=== PATIENT | male | born 1960 | race African-American/Black ===

== ENCOUNTER 2019-01-26 19:00 | Inpatient (IN) | payer OTHER ==
[~2019-01-26] VITALS: Ht 188 cm; Wt 77.7 kg
--- NOTE | ~2019-01-26 | HC ---
[facility] [place] [address] CONSULTATION Name: KATHY STONER Room #: 364-P ADM IN M.R.#: [id number] Admission: 01/26/19 ������������������ Attend Phys: Indra Nicholas MD Discharge: ������������������ Date of : 64 Report #: [id number] THIS REPORT FOR: //name// CC: James Nicholas [facility] physician/PCP Kuldeep Cuellar DATE OF SERVICE: 02/05/2019 CHIEF COMPLAINT: The patient admitted for diabetic foot ulcer to the right plantar second MTP joint. The patient is DICTATION ENDS HERE. ��������������������������������������������� ���������������������������������������� By: ��������������������������������������������� 1715 [id number] Lenny Aguilar DPM /hua
[~2019-01-26 19:00] MED LIST: ADVAIR 500-501 EACH; ADVAIR 500-501 EACH INH; ALBUTEROL; ASPIRIN325 PO; AVELOX 400 MG400 MG PO; CARDIZEM CD360 MG PO; COLACE 100 MG100 MG PO; CRESTOR10 MG PO; DILTIAZEM ER; DILTIAZEM HCL90 MG PO; FLONASE 0.05%50 MCG NASAL; FUROSEMIDE 40 M40 M1 PO; HYDROCODON-ACE1 EAC7 PO; IPRATROPIUM; LANOXIN 0.120.125 M1 PO; LANTUS SUBQ; LASIX 40 MG TAB40 M1 PO; LISINOPRIL40 MG PO; LOPRESSOR 50 MG50 M1 PO; METOPROLOL PO; MIRALAX255 GM PO; NOVOLIN N100 UNIT/1 SUBQ; NOVOLOG100 UNIT/1; NOVOLOG100 UNIT/1 SUBQ; POTASSIUM CHLO20 ME1 PO; PREDNISONE 10 M10 MG; PREDNISONE 10 M10 MG PO; PREDNISONE 20 M20 M1 PO; RANITIDINE 150150 M1 PO; SENNA PO; SENNA-S TABLET1 EACH PO; SPIRIVA INH; VENTOLIN HFA INH8 GM INH; XARELTO10 M1 PO; ZANTAC 150MG T150 M1 PO; [UNRECOGNIZED DRUG - CODE]
[2019-01-26 20:00] LABS: MCHC 30.4 g/dL (28.0-37.0); MCV 88.8 fL (80.0-100.0)
[2019-01-26 20:02] LABS: HEMATOCRIT 39.4 % (42.0-52.0); PLATELET COUNT 162 thou/uL (150-400); RBC 4.44 mil/uL (4.50-6.00); RDW 23.5 % (10.5-14.5); WBC 6.6 thou/uL (4.0-11.0)
[2019-01-26 20:05] LABS: BE(vivo) -13.4 mmol/L (-2 to +3); HCO3 15.9 mmol/L (22.0-26.0); PCO2 50.8 mmHg (35.0-45.0); PO2 64.2 mmHg (80.0-100.0); sO2 84.4 % (92.0-98.0)
[2019-01-26 20:06] LABS: pH 7.113 (7.360-7.450)
[2019-01-26 20:13] LABS: CALCIUM 9.1 mg/dL (8.5-10.1); CREATININE 7.1 mg/dL (0.7-1.3)
[2019-01-26 20:18] LABS: ALBUMIN 3.2 g/dL (3.4-5.0); DIRECT BILIRUBIN 0.8 mg/dL (<0.1-0.3); TOTAL BILIRUBIN 1.2 mg/dL (<0.1-1.0); TOTAL PROTEIN 7.8 g/dL (6.4-8.2); TROPONIN-I 0.32 ng/mL (<0.06)
[2019-01-26 20:21] LABS: ABSOLUTE NEUTROPHILS 5.5 thou/uL (1.4-8.2); ANISOCYTOSIS 2+; NUCLEATED RBCS 2 /100WBC
[2019-01-26 20:22] LABS: LARGE PLATELETS OCCASIONAL; POIKILOCYTOSIS 1+
[2019-01-26 21:12] LABS: BE(vivo) -14.5 mmol/L (-2 to +3); HCO3 15.1 mmol/L (22.0-26.0); PCO2 50.3 mmHg (35.0-45.0); PO2 93.4 mmHg (80.0-100.0)
[2019-01-26 21:13] LABS: pH 7.094 (7.360-7.450)
[2019-01-26 21:16] LABS: APTT 28.6 Seconds (24.5-32.8); INR 1.2; PROTIME 12.9 Seconds (9.3-11.4)
--- NOTE | 2019-01-26 23:51 | NUR ---
MARLENE STONER (SISTER/DPOA) CALLED [phone]. SHE STATED THAT PT USUALLY [place] [facility] [place]
[2019-01-26 23:57] LABS: SALICYLATE < 2.8 mg/dL (2.8-20.0); TROPONIN-I 0.42 ng/mL (<0.06)
[2019-01-27] VITALS (59 sets, daily range): BP systolic 43–124; BP diastolic 17–85
[2019-01-27 00:15] LABS: BE(vivo) -12.1 mmol/L (-2 to +3); HCO3 15.9 mmol/L (22.0-26.0); PCO2 44.3 mmHg (35.0-45.0); PO2 96.8 mmHg (80.0-100.0); sO2 95.6 % (92.0-98.0)
[2019-01-27 00:18] LABS: pH 7.173 (7.360-7.450)
[2019-01-27 01:57] LABS: BE(vivo) -9.3 mmol/L (-2 to +3); HCO3 17.1 mmol/L (22.0-26.0); PCO2 39.2 mmHg (35.0-45.0); PO2 183.2 mmHg (80.0-100.0); sO2 99.1 % (92.0-98.0)
[2019-01-27 01:58] LABS: pH 7.258 (7.360-7.450)
[2019-01-27 02:44] LABS: URINE BILIRUBIN 1+ (Negative); URINE BLOOD 3+ (Negative); URINE CLARITY CLEAR; URINE COLOR YELLOW; URINE GLUCOSE-RANDOM* NEGATIVE (Negative); URINE KETONES TRACE (Negative); URINE NITRITE-REFLEX NEGATIVE (Negative); URINE PROTEIN (DIPSTICK) 2+ (Negative); URINE UROBILINOGEN 0.2 E.U./dl (0.2-1.0)
[2019-01-27 02:50] LABS: URINE LEUKOCYTES-REFLEX 2+ (Negative)
[2019-01-27 02:53] LABS: AMP/METHAMP Negative (Negative); BARBITURATES Negative (Negative); BENZODIAZEPINES POSITIVE (Negative); COCAINE POSITIVE (Negative); METHADONE Negative (Negative); OPIATES Negative (Negative); PCP POSITIVE (Negative)
[2019-01-27 03:01] LABS: CASTS None Seen /LPF (None Seen); CRYSTALS None Seen /LPF (None Seen); MUCUS 0-3 Light strn/LPF (None Seen); SQUAMOUS 0-3 Few /LPF (0-3); URINE RBC >20 Many /HPF (0-2)
[2019-01-27 05:52] LABS: WBC 7.3 thou/uL (4.0-11.0)
[2019-01-27 05:54] LABS: HEMATOCRIT 37.4 % (42.0-52.0); HEMOGLOBIN 11.7 gm/dL (14.0-18.0); MCH 26.9 pg (26.0-34.0); MCHC 31.3 g/dL (28.0-37.0); MCV 85.9 fL (80.0-100.0); RBC 4.35 mil/uL (4.50-6.00); RDW 22.7 % (10.5-14.5)
[2019-01-27 06:10] LABS: CALCIUM 9.2 mg/dL (8.5-10.1); CREATININE 7.6 mg/dL (0.7-1.3); POTASSIUM 5.3 mmol/L (3.5-5.1); TROPONIN-I 0.59 ng/mL (<0.06)
--- NOTE | 2019-01-27 06:25 | NUR ---
Pt received into room 242 earlier this am, made comfortable in bed and monitor applied. See rhythm strips. Remains on levophed gtt for BP maintenance and sedated on low dose propofol gtt for vent management. Urine output remains marginal for shift and no BM observed. Am lab results noted, continue with POC.
[2019-01-27 08:07] LABS: URINE CREATININE-RANDOM* 118.2 mg/dL
--- NOTE | 2019-01-27 08:37 | EKG ---
[address] [address] ELECTROCARDIOGRAM REPORT Name: KATHY STONER Room #: 242-P ADM IN M.R.#: [id number] ������������������ Admission: 01/26/19 ������������������ Attend Phys: Indra Nicholas MD Discharge: ������������������ Date of : 64 Report #: [id number] ����������������������������������������������������������������� [id number] THIS REPORT FOR: //name// [facility] ED Test Date: 2019-01-26 Test Time: 19:57:34 Pat Name: KATHY STONER Department: Room: 242 Gender: M Retail Loan Officer: HERMINIA : 1960 Requested By: Michael Ruiz Order Number: [id number] MD: Alexander Agustin Measurements Intervals [place] Rate: 103 P: [place]: QRS: 139 QRSD: 102 T: QT: 477 QTc: 625 Interpretive Statements Atrial fibrillation Right axis deviation Low voltage, extremity and precordial leads Compared to ECG 12/04/2012 08:40:34 Electronically Signed On 01-27-2019 8:36:56 CLERICAL AIDE TEACHER by Alexander Agustin [email or web address] ��������������������������������������������� <ELECTRONICALLY SIGNED> ���������������������������������������� By: Alexander Agustin MD ��������������������������������������������� 01/27/19 0836 56 56 Alexander Agustin MD /GOPI
--- NOTE | 2019-01-27 10:08 | 2DMMODE ---
[facility] [address] [place] [address] 2 D/M-MODE ECHOCARDIOGRAM Name: GEORGIANAKATHYALEISHA MARTIN Room #: 242-P [facility] IN M.R.#: [id number] ������������� Admission: 01/26/19 ������������� Attend Phys: Indra Nicholas MD Discharge: ��� ������������� ��� Date of : 64 Date of Service: 01/27/19 1008 �� Report #: [id number] �������� ��������������������������������������������[id number] THIS REPORT FOR: //name// APPROVED REPORT Study performed: 01/27/2019 08:39:52 EXAM: Comprehensive 2D, Doppler, and color-flow Echocardiogram Patient Location: ICU Room #: 242 Status: routine BSA: 2.32 HR: 89 bpm BP: 96/63 mmHg Rhythm: Atrial Fibrillation Other Information Study Quality: Good Indications COPD Pulmonary Hypertension Diabetes Atrial Fibrillation Dyspnea Elevated Troponin Cardiomyopathy Hypertension/HDD 2D Dimensions RVDd: 63.88 mm IVSd: 12.31 (7-11mm) LVOT Diam: 23.07 (18-24mm) LVDd: 48.23 mm PWd: 13.34 (7-11mm) Ascending Ao: 29.24 (22-36mm) LVDs: 40.04 (25-40mm) Aortic Root: 32.16 mm IVC: 43.00 mm Volumes Left Atrial Volume (Systole) Single Plane 4CH: 72.80 mL Single Plane 2CH: 76.13 mL LA ESV Index: 35.00 mL/m2 Aortic Valve AoV Peak Segun.: 1.04 m/s AO Peak Gr.: 5.51 mmHg LVOT Max P.51 mmHg [facility] [address] [place] [address] 2 D/M-MODE ECHOCARDIOGRAM Name: GEORGIANAKATHY MARIO Room #: 242-P [facility] IN ..#: [id number] ������������� Admission: 01/26/19 ������������� Attend Phys: Indra Nicholas MD Discharge: ��� ������������� ��� Date of : 64 Date of Service: 01/27/19 1008 �� Report #: [id number] �������� ��������������������������������������������[id number] LVOT Max V: 0.93 m/s SHARAD Vmax: 3.74 cm2 Pulmonary Valve PV Peak Segun.: 1.26 m/s PV Peak Gr.: 6.31 mmHg Tricuspid Valve TR Peak Segun.: 3.49 m/s TR Peak Gr.: 48.98 mmHg PA Pressure: 64.00 mmHg Left Ventricle The left ventricle is normal size. Flattened septum consistent with right ventricular pressure overload. Mild concentric left ventricular hypertrophy. Left ventricular systolic function is mildly decreased. LVEF is 45-50%. This study is not technically sufficient to allow evaluation of the LV diastolic function due to atrial fibrillation. Right Ventricle Right ventricle is markedly dilated. Right ventricle is hypokinetic. Atria Left atrium is dilated. Right atrium is dilated. Aortic Valve The aortic valve is normal in structure. No aortic regurgitation is present. There is no aortic valvular stenosis. Mitral Valve The mitral valve is normal in structure. Mild mitral regurgitation. No evidence of mitral valve stenosis. Tricuspid Valve The tricuspid valve is normal in structure. There is severe tricuspid regurgitation. Estimated PAP 64 mmHg. There is moderate-severe pulmonary hypertension. Pulmonic Valve The pulmonary valve is normal in structure. Trace to mild pulmonic regurgitation. Great Vessels The aortic root is normal in size. The inferior vena cava is dilated with no inspiratory collapse. [facility] [place] [address] 2 D/M-MODE ECHOCARDIOGRAM Name: GEORGIANAKATHY MARIO Room #: 242-P ADM IN M.R.#: [id number] ������������� Admission: 01/26/19 ������������� Attend Phys: Indra Nicholas MD Discharge: ��� ������������� ��� Date of : 64 Date of Service: 01/27/19 1008 �� Report #: [id number] �������� ��������������������������������������������[id number] Pericardium Small pericardial effusion. <Conclusion> The left ventricle is normal size. LVEF is 45-50%. Flattened septum consistent with right ventricular pressure overload. Right ventricle is markedly dilated. Right ventricle is hypokinetic. Left atrium is dilated. Right atrium is dilated. The aortic valve is normal in structure. The mitral valve is normal in structure. Mild mitral regurgitation. The tricuspid valve is normal in structure. There is severe tricuspid regurgitation. Estimated PAP 64 mmHg. There is moderate-severe pulmonary hypertension. The pulmonary valve is normal in structure. Trace to mild pulmonic regurgitation. Small pericardial effusion. ��������������������������������������������� <ELECTRONICALLY SIGNED> ���������������������������������������� By: Kuldeep Cuellar MD ��������������������������������������������� 01/27/19 1008 1008 07 Kuldeep Cuellar MD /INF
[2019-01-27 11:04] LABS: HEMATOCRIT 36.5 % (42.0-52.0); HEMOGLOBIN 11.5 gm/dL (14.0-18.0); MCH 26.5 pg (26.0-34.0); MCHC 31.4 g/dL (28.0-37.0); MCV 84.5 fL (80.0-100.0); RBC 4.33 mil/uL (4.50-6.00); RDW 22.3 % (10.5-14.5); WBC 7.4 thou/uL (4.0-11.0)
[2019-01-27 11:15] LABS: INR 1.2; PROTIME 12.8 Seconds (9.3-11.4)
--- NOTE | 2019-01-27 13:03 | NUR ---
Case opened to follow for support and dc planning. The pt is currently in the ICU on a vent. Case discussed with the care team and chart reviewed. Pt's sister Shira is said to be his dpoa. Mat Machine Operator spoke with Shira who conferenced in their mom Maria Luz. The pt and his mom Maria Luz lives with his brother Jigar. Maria Luz reports that the [place] was [place] [facility] [place] the last month and that the past 3 weeks he has been too weak to get out of his car and into the house which has approx 30 steps. He has been sleeping in the car. He is not able to do the steps without assistance and his brother works clasp machine operator. The pt's mother is elderly and can not help him either. She reports that he struggles to care for himself and does not use his home o2 regularly as it is in the house. She reports that he keeps his meds in the car and she is not sure if he has been taking them. Shira reports that he has a DPOA for health care on file at [facility]. The family does not have a copy. Nursing is requesting his records. The pt's sister notes that she lives out of town and that Jigar and Maria Luz should be contacted first if he has a change in status. His mom does not drive and is waiting for Jigar to get home from work before coming in to see him today. Contact numbers updated. Will follow along for support as needed.
[2019-01-27 17:33] LABS: BE(vivo) -7.6 mmol/L (-2 to +3); HCO3 17.3 mmol/L (22.0-26.0); PCO2 33.5 mmHg (35.0-45.0); PO2 148.4 mmHg (80.0-100.0); pH 7.331 (7.360-7.450); sO2 98.8 % (92.0-98.0)
[2019-01-27 18:38] LABS: CALCIUM 8.9 mg/dL (8.5-10.1); CREATININE 7.5 mg/dL (0.7-1.3); POTASSIUM 5.4 mmol/L (3.5-5.1)
--- NOTE | 2019-01-27 20:21 | NUR ---
END OF SHIFT NOTE. PT REMAINS STABLE ON VENT TODAY LEVOPHED AT 14MCG. AFIB WITH PVCS.
[2019-01-28] VITALS (47 sets, daily range): BP systolic 85–115; BP diastolic 46–74
[2019-01-28 04:46] LABS: BE(vivo) -8.9 mmol/L (-2 to +3); HCO3 16.3 mmol/L (22.0-26.0); PO2 181.9 mmHg (80.0-100.0); sO2 99.1 % (92.0-98.0)
[2019-01-28 04:47] LABS: pH 7.311 (7.360-7.450)
--- NOTE | 2019-01-28 05:21 | NUR ---
PT RESTING COMFORTABLE ON VENT NOW AT 40% FIO2 SATS 100% PT REMAINS ON PROPOFOL GTT FOR VENT COMFORT. PT ALSO ON HEPARIN, LEVO AND LASIX GTT. PT AFEBRILE AND VSS. REMAINS AFIB ON MONITOR. PT CONITUES WITH OGT LIS WITH BROWN DRAINAGE. AM LABS TO BE DRAWN AND REVIEWED.
[2019-01-28 05:46] LABS: HEMATOCRIT 39.1 % (42.0-52.0); HEMOGLOBIN 12.2 gm/dL (14.0-18.0); MCH 26.2 pg (26.0-34.0); MCHC 31.1 g/dL (28.0-37.0); MCV 84.4 fL (80.0-100.0); RBC 4.63 mil/uL (4.50-6.00); RDW 22.6 % (10.5-14.5); WBC 7.8 thou/uL (4.0-11.0)
[2019-01-28 06:06] LABS: ALBUMIN 2.7 g/dL (3.4-5.0); CALCIUM 8.8 mg/dL (8.5-10.1); CREATININE 6.9 mg/dL (0.7-1.3)
[2019-01-28 06:13] LABS: POTASSIUM 5.3 mmol/L (3.5-5.1)
--- NOTE | 2019-01-28 07:49 | HC ---
[facility] [address] [address] [place] [address] CONSULTATION Name: KATHY STONER Room #: 242-P ADM IN M.R.#: [id number] Admission: 01/26/19 ������������������ Attend Phys: Indra Nicholas MD Discharge: ������������������ Date of : 64 Report #: [id number] THIS REPORT FOR: //name// CC: James Nicholas [facility] physician/PCP Kuldeep Cuellar REASON FOR CONSULTATION: Acute kidney injury. REASON FOR PRESENTATION: Brought by his family members due to loss of consciousness. HISTORY OF PRESENT ILLNESS: This is not obtained from the patient as he is currently not able to provide me with any details of the history, he is intubated. He is a 58-year-old with past medical history of heart failure, ejection fractions of 30% per his sister. He has substance abuse. He is known to have seizure disorder, Hodgkin's lymphoma. It is not clear to me whether he was treated for that or not. He was found by his brother in a car outside his brother's home. Was brought to the Emergency Room declined and deteriorated his conditions, was intubated and I am consulted to manage his acute kidney injury as he was found to be hyperkalemic with a potassium of 6.0 and a creatinine of 7.6. No known baseline. However, back in 2012, he had normal kidney function. He is known to have history of Hodgkin's lymphoma and was supposed to have a Port-A-Cath placed back in 2012 while here in the hospital; however, he lost to follow up per the notes. He has very advanced COPD. He follows at [facility] and had required numerous paracenteses for ascites. PAST MEDICAL HISTORY: 1. Hodgkin's lymphoma. 2. Heart failure. 3. Noncompliance. 4. COPD. 5. Diabetes mellitus. 6. Restrictive lung disease. 7. Hypertension. 8. Substance abuse. 9. Multiple paracenteses for ascites. 10. Post-lymph node biopsy. REPORTED MEDICATIONS: 1. Diltiazem. 2. Lisinopril. 3. Metoprolol. 4. Digoxin. 5. Xarelto. 6. Insulin. [facility] [address] [place] [address] CONSULTATION Name: KATHY STONER MARIO Room #: 242-P [facility] IN M.R.#: [id number] Admission: 01/26/19 ������������������ Attend Phys: Indra Nicholas MD Discharge: ������������������ Date of : 64 Report #: [id number] 7. Furosemide. REVIEW OF SYSTEMS: Unobtainable. The patient is currently intubated. FAMILY HISTORY: Unobtainable given the patient's mental status. SOCIAL HISTORY: Unobtainable given the patient's mental status. PHYSICAL EXAMINATION: GENERAL: Intubated. VITAL SIGNS: Pulse is 96, blood pressure is 111/73, respiratory rate is 22. HEAD AND NECK: There is an ET tube. CHEST: Decreased air entry bilaterally. CARDIOVASCULAR: No rub detected. ABDOMEN: Soft, distended. LOWER EXTREMITIES: +3 edema. LABORATORY VALUES: Reviewed. Hemoglobin is 11.7. Chemistry from today revealed a sodium of 140, potassium 5.3, BUN of 111, creatinine of 7.6. Ammonia was marginally elevated from yesterday at 53. Troponin was marginally elevated. Lactic acid was 2.5. Chest x-ray with diffuse infiltrate. ASSESSMENT, IMPRESSION, PLAN: 1. Acute kidney injury with unknown baseline. 2. Noncompliance. 3. Substance abuse. 4. Hematuria. 5. Respiratory failure. 6. Hyperkalemia. 7. Hodgkin's lymphoma. 8. Ascites with repeated paracentesis. 9. We will initiate the appropriate workup for the patient, however. It does look like that the patient has extensive comorbid conditions with extreme noncompliance, which will complicate his management. 10. Rule out rhabdomyolysis. 11. Obtain an ultrasound of both kidneys. 12. Initiated on Lasix drip yesterday. 13. Potassium was treated and it is down. 14. Obtain a cardiac echo. 15. Vent management per Pulmonary. 16. Septic workup. 17. Obtain [facility] medical record. [address] [address] CONSULTATION Name: STONERKATHY Room #: 242-P [facility] IN M.R.#: [id number] Admission: 01/26/19 ������������������ Attend Phys: Indra Nicholas MD Discharge: ������������������ Date of : 64 Report #: [id number] 18. We will have to discuss with the family future plans for his care including potential need for dialysis. ��������������������������������������������� <ELECTRONICALLY SIGNED> ���������������������������������������� By: James Yanes MD ��������������������������������������������� 01/28/19 0749 0740 1922 James Yanes MD /nt
--- NOTE | 2019-01-28 18:36 | NUR ---
PATIENT ON LIGHT SEDATION, ALERT AND FOLLOWS COMMANDS WITH SEDATION VACATION. A-FIB ON DIPLOMA MAKER. PATIENT CURRENT RATE 120S-130'S DR. LORENZ AWARE, NO NEW ORDERS NOTED. ON VENTILATOR 30% FIO2. OG TUBE TO LIS. GODINEZ PATENT WITH ADEQUATE OUTPUT. PATIENT TURNED Q2H. FAMILY UPDATED ON THE PLAN OF CARE. NO SIGNS OF ACUTE DISTRESS NOTED AT THIS TIME. WILL CONTINUE TO MONITOR.
--- NOTE | 2019-01-28 19:47 | HC ---
[facility] [place] [address] [place] [address] CONSULTATION Name: KATHY STONER Room #: 242-P [facility] IN M.R.#: [id number] Admission: 01/26/19 ������������������ Attend Phys: Indra Nicholas MD Discharge: ������������������ Date of : 64 Report #: [id number] THIS REPORT FOR: //name// CC: James Nicholas [facility] physician/PCP Kuldeep Cuellar TYPE OF REPORT: Pulmonary consultation. REFERRING PHYSICIAN: Indra Nicholas M.D. REASON FOR REFERRAL: Acute respiratory failure. HISTORY OF PRESENT ILLNESS: The patient is a 58-year-old -Iranian male who was brought to the Emergency Room with altered mental status. He was subsequently intubated. A Pulmonary consultation was requested. Most of the history is obtained from the records. Going through the records, the patient has multiple medical problems including COPD, sleep apnea, noncompliant with the use of CPAP, Hodgkin's lymphoma, atrial fibrillation and hypertension. He also has a history of substance abuse. According to records, the patient was found sleeping outside in a car from his brother's home. He was subsequently brought to the Emergency Room. His mentation deteriorated over time, necessitating intubation. Initial EKG showed atrial fibrillation with a rate of 103 without right axis deviation. He was found to be profoundly acidotic with mixed respiratory and metabolic acidosis. His creatinine was 7.1. Cardiology has been consulted along with Nephrology Service. Overnight, the patient was fairly stable, requiring vasopressors. Hemodynamically remained relatively stable. Updates were given when I was called about the patient's arrival to the ICU around 2:00 in the morning. The patient was given bicarbonate with some correction in his severe acidosis. PAST MEDICAL HISTORY: As mentioned above. History of atrial fibrillation, hypertension, COPD, sleep apnea, apparently noncompliant with the use of CPAP, history of heart failure, Hodgkin's lymphoma diagnosed in 2011, status post right neck lymph node biopsy, diabetes mellitus type 1, seizure disorder, polysubstance abuse including PCP, cocaine, history of liver disease with ascites, history of West Nile virus infection and past history of INNOVATION MANAGER bleed. ALLERGIES: To PENICILLIN, reactions not specified. MEDICATIONS: List from home reviewed and this include Ventolin, Cardizem, Novolin, Zestril, Spiriva, Lopressor, Zantac, Lovenox, Xarelto, Flonase nasal [facility] [address] [place] [address] CONSULTATION Name: KATHY STONER MARIO Room #: 242-P [facility] IN .R.#: [id number] Admission: 01/26/19 ������������������ Attend Phys: Indra Nicholas MD Discharge: ������������������ Date of : 64 Report #: [id number], Lantus and Lasix. FAMILY HISTORY: Noncontributory. SOCIAL HISTORY: History of polysubstance abuse, current tobacco abuse and no history of alcohol use. REVIEW OF SYSTEMS: Deferred as the patient is intubated. PHYSICAL EXAMINATION: GENERAL: He is sedated. VITAL SIGNS: Temperature is 98 degrees Fahrenheit, pulse is 90, respiratory rate is 22, blood pressure 100/78 mmHg and saturation 100%. HEENT: Normocephalic and atraumatic. He is orally intubated. NECK: Supple, without any lymphadenopathy or thyromegaly. CHEST: Breath sounds are fair with few scattered crackles in the bases. No wheezes. CARDIOVASCULAR: Normal S1 and S2. There are no murmurs or gallop. There is no JVD and no carotid bruit. Pulses are 1/4+ bilaterally. ABDOMEN: Soft. No masses felt. GENITOURINARY: Deferred. RECTAL: Deferred. EXTREMITIES: There is no edema, cyanosis or clubbing. NEUROLOGICAL: Deferred as the patient is sedated. RADIOLOGICAL DATA: Portable chest x-ray shows ET tube approximately 2 cm above the vazquez. Cardiomegaly is present. Mild interstitial infiltrates are noted along with bilateral mild pleural thickening. There are no old x-rays for comparison. Venous Doppler ultrasound shows no evidence of DVT. Echocardiogram shows a decrease in ejection fraction of 45%, normal LV size, markedly dilated right ventricle, hypokinetic right ventricle, dilated left and right atrium, mild mitral regurgitation and pulmonary artery pressure measuring [address] head shows focal hypodensity involving the medial aspect of the left frontal lobe, likely encephalomalacia related to remote infarct. Sodium 142, potassium 6.0 and repeat is 5.3, chloride 109, CO2 16, BUN is 106 and creatinine is 7.1. Liver enzymes are mildly abnormal. WBC 6600, hemoglobin 12.0 and platelets normal and no evidence of significant bandemia. Albumin 3.2. Troponin 0.59. Initial arterial blood gas revealed pH 7.11, pCO2 of 50 and pO2 of 64 on 3-1/2 liters of O2. IMPRESSION: 1. Acute hypercapnic hypoxic respiratory failure in this 68-year-old -Iranian male. He has multiple medical problems including polysubstance abuse, chronic obstructive pulmonary disease and sleep apnea. He has severe mixed respiratory and metabolic acidosis. [address] [address] CONSULTATION Name: KATHY STONER Room #: 242-P [facility] IN M.R.#: [id number] Admission: 01/26/19 ������������������ Attend Phys: Indra Nicholas MD Discharge: ������������������ Date of : 64 Report #: [id number] Etiology for his respiratory failure is due to encephalopathy, possible sepsis with worsening renal failure. Substance abuse may be contributing. 2. Altered mental status, encephalopathy as mentioned above, likely multifactorial including toxic and metabolic and possible infectious source along with his hepatic liver disease. Urine drug screen will be helpful. 3. Hypotension. Not entirely clear but presumed sepsis, possible volume depletion. 4. Acute kidney injury with a creatinine of 7.0, hyperkalemia, profound metabolic acidosis complicated by mixed respiratory acidosis. Renal has been consulted. Etiology of this is unclear. 5. History of chronic obstructive pulmonary disease, severity unknown, contributing to respiratory failure. 6. History of sleep apnea, apparently noncompliant with his continuous positive airway pressure and also contributing to his respiratory compromise. 7. History of liver disease with a past history of ascites. The patient apparently has had paracentesis in the past. 8. History of Hodgkin's lymphoma in 2011. 9. Hypertension. 10. Diabetes mellitus, insulin-dependent. 11. History of seizure disorder. 12. Apparent history of cerebrovascular accident, CT head noted. 13. Polysubstance abuse including phencyclidine and cocaine. 14. Echocardiogram shows reduced ejection fraction 45%, markedly dilated right ventricle with hypokinetic right ventricle, pulmonary artery pressure measures 64 mmHg. There is a question of possible pulmonary embolus. Based on the presentation, this is felt to be less likely. His right ventricular abnormality may be related to underlying chronic obstructive pulmonary disease, untreated sleep apnea along with substance abuse. Ultrasound shows no evidence of deep venous thrombosis. Heparin has been initiated by Cardiology. We cannot do a CT chest angiogram given renal failure. Ultimately V/Q scan may be helpful if possible if it can be done. RECOMMENDATIONS: We will continue mechanical ventilation, wean O2 for saturation 90%. Acidosis has been partially corrected. Currently, predominantly metabolic with pCO2 now down to 39 mmHg. Gastric change is adequate. He has been seen by Renal Service regarding his acute kidney injury along with electrolyte imbalance and acidosis. It is reasonable to continue broad-spectrum antibiotics given hypotension, questionable occult infection leading to sepsis. The exact time has been used given renal failure as there is also concern for urinary tract infection. We will continue to monitor closely, follow acid-base electrolytes closely. DVT and GI prophylaxis is indicated. Overall, outlook appears to be poor given severe complex comorbid conditions. [address] [address] CONSULTATION Name: STONERKATHY MARIO Room #: 242-P [facility] IN M.R.#: [id number] Admission: 01/26/19 ������������������ Attend Phys: Indra Nicholas MD Discharge: ������������������ Date of : 64 Report #: [id number] Thank you for this consultation. ��������������������������������������������� <ELECTRONICALLY SIGNED> ���������������������������������������� By: Alvaro Strong MD ��������������������������������������������� 01/28/19 1947 1659 0 Alvaro Strong MD /nt
[2019-01-29] VITALS (52 sets, daily range): BP systolic 92–119; BP diastolic 52–83
[2019-01-29 03:15] LABS: HEMATOCRIT 40.4 % (42.0-52.0); HEMOGLOBIN 12.3 gm/dL (14.0-18.0); MCH 25.5 pg (26.0-34.0); MCHC 30.4 g/dL (28.0-37.0); MCV 83.8 fL (80.0-100.0); PLATELET COUNT 178 thou/uL (150-400); RBC 4.82 mil/uL (4.50-6.00); WBC 19.4 thou/uL (4.0-11.0)
[2019-01-29 03:25] LABS: ALBUMIN 2.8 g/dL (3.4-5.0); CALCIUM 9.2 mg/dL (8.5-10.1); CREATININE 5.9 mg/dL (0.7-1.3); PHOSPHORUS 7.1 mg/dL (2.5-4.9); POTASSIUM 4.8 mmol/L (3.5-5.1)
[2019-01-29 03:41] LABS: ABSOLUTE NEUTROPHILS 18.4 thou/uL (1.4-8.2)
[2019-01-29 03:43] LABS: ANISOCYTOSIS 2+; PLATELET ESTIMATE NORMAL; POLYCHROMASIA 1+
--- NOTE | 2019-01-29 06:37 | NUR ---
Pt intubated and sedated. VSS. Levo titrated down to 9 mcg/min from 14 mcg/min. Propofol at 10 mcg/kg/min. Woke up during [facility] bed bath this AM with eyes half open, following commands. Restraints and fall precautions in place. No apparent distress noted.
--- NOTE | 2019-01-29 09:42 | NUR ---
Nutrition: If pt not extubated today, REC Start enteral nutrition of Nepro to reach goal of 50 mL/hr.
--- NOTE | 2019-01-29 16:49 | NUR ---
ASSUMED CARE OF PT AT 0700 THIS SHIFT. PT HAS BEEN INTUBATED AND SEDATED THIS SHIFT. PT DOES WAKE UP WITH LESSENED SEDATION, FOLLOWS SOME COMMANDS. PT HAD A SHORT C-PAP TRIAL THIS SHIFT, TOLERATED <5 MINUTES WITH HR CLIMBING AND SATS DROPPING. UNABLE TO WEAN PT OFF LEVOPHED GTT, PRESSURES STILL SOFT. LASIX GTT WAS DCd THIS SHIFT. ASSESSMENTS ARE DOCUMENTED. PT HAS NOT HAD VISITORS THIS SHIFT, EDUCATION WAS PROVIDED. PLAN OF CARE IS TO CONTINUE TO MONITOR PT CLOSELY.
[2019-01-30] VITALS (97 sets, daily range): BP systolic 78–122; BP diastolic 38–88
--- NOTE | 2019-01-30 03:33 | NUR ---
ASSUMED CARE OF PT AT 1900 ON 01/29/19. PT INTUBATED AND ON VENT. SEDATED WITH PROPOFOL GTT. WHEN ON 'SEDATION VACATION', PT IS ABLE TO FOLLOW COMMANDS AND MOVE ALL EXTREMITIES, BUT IS WEAK. AMIO GTT STARTED AT SHIFT CHANGE FOR A FIB RVR. PT'S RATE IS NOW MORE CONTROLLED. PT'S RHYTHM CONTINUES TO BE A FIB WITH PVCs. ON LEVO GTT FOR BP SUPPORT, IT HAS BEEN TITRATED DOWN SLOWLY THROUGH THE NIGHT. ASSESSMENTS AND VITALS DOCUMENTED. WILL CONTINUE TO MONITOR PT CLOSELY.
[2019-01-30 05:05] LABS: BE(vivo) -2.9 mmol/L (-2 to +3); HCO3 22.3 mmol/L (22.0-26.0); PCO2 40.3 mmHg (35.0-45.0); PO2 99.5 mmHg (80.0-100.0); pH 7.361 (7.360-7.450); sO2 97.3 % (92.0-98.0)
[2019-01-30 05:58] LABS: HEMATOCRIT 39.1 % (42.0-52.0); MCH 25.7 pg (26.0-34.0); MCHC 30.8 g/dL (28.0-37.0); MCV 83.6 fL (80.0-100.0); RBC 4.67 mil/uL (4.50-6.00); RDW 22.6 % (10.5-14.5); WBC 20.8 thou/uL (4.0-11.0)
[2019-01-30 06:10] LABS: ALBUMIN 2.5 g/dL (3.4-5.0); CALCIUM 9.3 mg/dL (8.5-10.1); PHOSPHORUS 6.7 mg/dL (2.5-4.9); POTASSIUM 4.2 mmol/L (3.5-5.1)
[2019-01-30 06:13] LABS: CREATININE 4.7 mg/dL (0.7-1.3)
[2019-01-31] VITALS (88 sets, daily range): BP systolic 81–116; BP diastolic 46–87
[2019-01-31 05:10] LABS: BE(vivo) -3.3 mmol/L (-2 to +3); HCO3 24.2 mmol/L (22.0-26.0); PO2 113.8 mmHg (80.0-100.0); sO2 97.5 % (92.0-98.0)
[2019-01-31 05:32] LABS: CALCIUM 9.4 mg/dL (8.5-10.1); CREATININE 3.9 mg/dL (0.7-1.3); POTASSIUM 4.2 mmol/L (3.5-5.1)
--- NOTE | 2019-01-31 07:00 | NUR ---
ASSUMED CARE OF PT AT 1900 ON 01/30/19. LASIX GTT RESTARTED AT 5 MG/HR PER DR. KHALIL. CAROLYN GTT NOW AT 0.5 MG/MIN; PT'S HR WAS IN THE 60-70s THROUGHOUT THE NIGHT. REMAINS ON LEVO GTT FOR BP SUPPORT, WAS ABLE TO TITRATE DOWN SOME LAST NIGHT. ASSESSMENTS AND VITALS DOCUMENTED. WILL CONTINUE TO MONITOR.
[2019-01-31 11:59] LABS: HEMATOCRIT 40.1 % (42.0-52.0); HEMOGLOBIN 12.5 gm/dL (14.0-18.0); MCH 26.3 pg (26.0-34.0); MCHC 31.1 g/dL (28.0-37.0); MCV 84.4 fL (80.0-100.0); PLATELET COUNT 134 thou/uL (150-400); RBC 4.75 mil/uL (4.50-6.00); RDW 22.7 % (10.5-14.5); WBC 17.7 thou/uL (4.0-11.0)
[2019-01-31 12:32] LABS: URINE BILIRUBIN NEGATIVE (Negative); URINE BLOOD NEGATIVE (Negative); URINE CLARITY CLEAR; URINE COLOR YELLOW; URINE GLUCOSE-RANDOM* NEGATIVE (Negative); URINE KETONES NEGATIVE (Negative); URINE NITRITE-REFLEX NEGATIVE (Negative); URINE PROTEIN (DIPSTICK) NEGATIVE (Negative); URINE UROBILINOGEN 0.2 E.U./dl (0.2-1.0)
[2019-01-31 12:33] LABS: URINE LEUKOCYTES-REFLEX 1+ (Negative)
[2019-01-31 12:49] LABS: CASTS None Seen /LPF (None Seen); MUCUS 4-6 Moderate strn/LPF (None Seen); SQUAMOUS 0-3 Few /LPF (0-3)
[2019-01-31 12:50] LABS: BACTERIA-REFLEX 1-9 Few /HPF (None Seen); CRYSTALS None Seen /LPF (None Seen); URINE RBC 0-2 Rare /HPF (0-2); URINE WBC-REFLEX 6-15 Few /HPF (0-5); WBC CLUMPS Occasional (None Seen)
[2019-01-31 12:58] LABS: ABSOLUTE NEUTROPHILS 17.2 thou/uL (1.4-8.2); ANISOCYTOSIS 2+; BURR CELLS FEW; LARGE PLATELETS OCCASIONAL; METAMYELOCYTES 2 %; NUCLEATED RBCS 3 /100WBC; OVALOCYTES FEW; POIKILOCYTOSIS 1+
--- NOTE | 2019-01-31 19:15 | NUR ---
Pt lightly sedated with Propofol. Propofol was placed on hold this evening for about 30 minutes while his mother and brother (Jigar) were here to visit. Pt was able to open his eyes and focus on his family. Pt nodded his head to some of their questions. Pt gripped with his left hand to request. Weak spontaneous movement with the right hand. No movement of feet noted. Appears very weak. Atrial fibrillation today with controlled rate. Pt on Levophed for BP support and Amiodarone gtt at 0.5 mg/min. Levophed is currently at 5 mcg/min. OG tube was replaced today and tube feedings started following confirmation of placement with KUB. Adequate urine output. Lasix gtt infusing at 5 mg/hr. Skin intact. Blood, urine and sputum cultures were sent today. Report given to RN assuming care. Pt required frequent suctioning for large volume of secretions. RT placed pt on CPAP for brief period which was not tolerated. Pt became tachypnic with RR uppper 30's and desaturated. Pt was placed back on the vent at previous settings. FIO2 was weaned to 30 percent for most of the day. Required increase back to 40 percent toward end of shift for O2 sat 89-91%. Report given to RN assuming care.
[2019-02-01] VITALS (51 sets, daily range): BP systolic 85–120; BP diastolic 55–84
--- NOTE | 2019-02-01 02:50 | NUR ---
ASSUMED CARE OF PATIENT AT 1900. VSS, AFBRILE. SEDATION VACATION DONE, PATIENT OPENS EYES AND ABLE TO FOLLOW SOME COMMANDS. APPEARS VERY WEAK. TITRATING PROPOFOL AND LEVO. SEE DOCUMENTATION. TUBE FEED AT GOAL RATE, SOME RESIDUALS. NO S/S OF DISTRESS. TURNED Q2 WITH ORAL CARE, BATH GIVEN. TOLERATES WELL. NO FAMILY AT BEDSIDE TONIGHT. WORKING TOWARDS POC GOALS.
[2019-02-01 04:27] LABS: ABSOLUTE NEUTROPHILS 15.4 thou/uL (1.4-8.2); BASOPHILS 0.2 % (0.0-2.0); HEMATOCRIT 39.7 % (42.0-52.0); HEMOGLOBIN 12.1 gm/dL (14.0-18.0); MCH 25.9 pg (26.0-34.0); MCHC 30.5 g/dL (28.0-37.0); MCV 84.7 fL (80.0-100.0); MONOCYTES 3.7 % (1.0-8.0); PLATELET COUNT 142 thou/uL (150-400); POLYS 95.1 % (36.0-66.0); RBC 4.69 mil/uL (4.50-6.00); RDW 22.6 % (10.5-14.5); WBC 16.3 thou/uL (4.0-11.0)
[2019-02-01 04:39] LABS: ALBUMIN 2.4 g/dL (3.4-5.0); CALCIUM 8.7 mg/dL (8.5-10.1); CREATININE 3.4 mg/dL (0.7-1.3); TOTAL BILIRUBIN 1.3 mg/dL (<0.1-1.0)
[2019-02-01 05:24] LABS: BE(vivo) -1.8 mmol/L (-2 to +3); HCO3 25.6 mmol/L (22.0-26.0)
[2019-02-01 05:25] LABS: pH 7.286 (7.360-7.450)
[2019-02-01 05:53] LABS: ANISOCYTOSIS 3+; POLYCHROMASIA 2+
[2019-02-01 05:55] LABS: LARGE PLATELETS SEVERAL; OVALOCYTES 1+; SCHISTOCYTES FEW
--- NOTE | 2019-02-01 09:46 | NUR ---
Recommend glucerna 1.2 goal of 70ml/hr. Recommend add prokinetic if residuals increase >250ml.
--- NOTE | 2019-02-01 20:20 | NUR ---
PATIENT ON LIGHT SEDATION, ABLE TO NOD TO YES/NO QUESTIONS, DIRECTOR DIGITAL MARKETING WITH UPPER EXTREMITIES. A-FIB ON BUSINESS PROJECT MANAGER. ON VENTILATOR. OG PRESENT, PATIENT TOLERATING TUBE FEEDS, BLOOD SUGAR MONITORED. GODINEZ PATENT WITH ADEQUATE OUTPUT. FOOT BOOTS FOR PROTECTION. NO SIGNS OF ACUTE DISTRESS NOTED AT THIS TIME. WILL CONTINUE TO MONITOR.
[2019-02-02] VITALS (67 sets, daily range): BP systolic 85–119; BP diastolic 49–90
--- NOTE | 2019-02-02 04:06 | NUR ---
ASSUMED PT CARE AT 1900. PT SLIGHTLY SEDATED BUT OPENS EYES IN RESPONSE TO NAME AND FOLLOWS SIMPLE COMMANDS. ON VENTILATOR, VENT SETTINGS MAINTAINED. VITAL SIGNS STABLE, ASSESSMENT CHARTED. NO COMPLAINTS OF PAIN. BILATERAL RESTRAINTS MAINTAINED. Q2HR TURNS COMPLETED. OGTUBE IN PLACE, TUBE FEEDING GOING AT 30ML/HR WITH Q4HR FLUSHES. PT RESTED WELL THROUGH THE NIGHT. PROGRESSING SLOWLY TOWARD PLAN OF CARE. WILL CONTINUE TO MONITOR.
[2019-02-02 05:30] LABS: ABSOLUTE NEUTROPHILS 14.4 thou/uL (1.4-8.2); BASOPHILS 0.1 % (0.0-2.0); HEMATOCRIT 39.6 % (42.0-52.0); HEMOGLOBIN 11.9 gm/dL (14.0-18.0); LYMPHOCYTES 1.1 % (24.0-44.0); MCH 25.5 pg (26.0-34.0); MCHC 30.1 g/dL (28.0-37.0); MCV 84.7 fL (80.0-100.0); MONOCYTES 3.2 % (1.0-8.0); PLATELET COUNT 129 thou/uL (150-400); POLYS 95.6 % (36.0-66.0); RBC 4.67 mil/uL (4.50-6.00); RDW 21.9 % (10.5-14.5); WBC 15.1 thou/uL (4.0-11.0)
[2019-02-02 05:44] LABS: CALCIUM 9.1 mg/dL (8.5-10.1); CREATININE 2.8 mg/dL (0.7-1.3); POTASSIUM 3.7 mmol/L (3.5-5.1)
[2019-02-02 12:27] LABS: BE(vivo) 3.7 mmol/L (-2 to +3); HCO3 33.5 mmol/L (22.0-26.0); PO2 103.1 mmHg (80.0-100.0); sO2 96.6 % (92.0-98.0)
[2019-02-02 12:29] LABS: PCO2 77.7 mmHg (35.0-45.0); pH 7.252 (7.360-7.450)
--- NOTE | 2019-02-02 18:34 | NUR ---
PATIENT ON LIGHT SEDATION, ABLE TO FOLLOW COMMANDS AND NOD TO YES/NO QUESTIONS. A-FIB ON CARRY ALL DRIVER. ON VENTILATOR, 40% FIO2. CPAP TRIAL TODAY FOR 2HRS, PATIENT TOLERATED WELL. OG WITH TUBE FEEDINGS, BLOOD SUGAR MONITORED. GODINEZ PATENT WITH ADEQUATE OUTPUT. FAMILY UPDATED ON THE PLAN OF CARE. NO SIGNS OF ACUTE DISTRESS NOTED AT THIS TIME. WILL CONTINUE TO MONITOR.
[2019-02-03] VITALS (95 sets, daily range): BP systolic 84–119; BP diastolic 48–86
--- NOTE | 2019-02-03 06:59 | NUR ---
ASSUMED CARE OF PT AT 1900 ON 02/02/19. PT INTUBATED AND ON VENT. PROPOFOL GTT FOR VENT MANAGMENT; LIGHTLY SEDATED, ABLE TO FOLLOW COMMANDS ON LOW DOSE. PT DOES GET AGITATED AT TIMES AND PULLS AT RESTRAINTS. ON LASIX AND AMIO GTTS AT SET RATES. TITRATE LEVO GTT TO MAINTAIN A MAP > 60. TOLERATING TUBE FEEDINGS; RESIDUALS HAVE BEEN < 10 CC ALL NIGHT.
--- NOTE | 2019-02-03 07:32 | NUR ---
PT INTUBATED AND ON VENT. ON PROPOFOL GTT FOR VENT MANAGEMENT, PT IS RESPONSIVE AND FOLLOWS COMMANDS ON LOW DOSE. PT REMAINS ON AMIO AND LASIX GTTS AT SET RATES. ON LEVO GTT FOR BP SUPPORT, KEEP MAP > 60. PT IS TOLERATING TUBE FEEDINGS; RESIDUALS < 10 CC OVERNIGHT. PT CONTINUES TO HAVE A LARGE AMOUNT OF THICK SECRETIONS THROUGH ET TUBE. ASSESSMENTS AND VITALS DOCUMENTED. WILL CONTINUE TO MONITOR.
[2019-02-03 09:12] LABS: HEMATOCRIT 39.4 % (42.0-52.0); HEMOGLOBIN 12.4 gm/dL (14.0-18.0); MCH 26.2 pg (26.0-34.0); MCHC 31.4 g/dL (28.0-37.0); MCV 83.5 fL (80.0-100.0); PLATELET COUNT 126 thou/uL (150-400); RBC 4.72 mil/uL (4.50-6.00); RDW 21.9 % (10.5-14.5); WBC 15.2 thou/uL (4.0-11.0)
[2019-02-03 09:21] LABS: CALCIUM 9.3 mg/dL (8.5-10.1); CREATININE 2.3 mg/dL (0.7-1.3); MAGNESIUM 1.8 mg/dL (1.8-2.4); POTASSIUM 3.5 mmol/L (3.5-5.1)
[2019-02-03 09:51] LABS: BE(vivo) 5.8 mmol/L (-2 to +3); HCO3 30.8 mmol/L (22.0-26.0); PCO2 45.9 mmHg (35.0-45.0); PO2 135.3 mmHg (80.0-100.0); pH 7.444 (7.360-7.450); sO2 98.8 % (92.0-98.0)
[2019-02-03 09:52] LABS: ABSOLUTE NEUTROPHILS 13.8 thou/uL (1.4-8.2); PLATELET ESTIMATE NORMAL
[2019-02-04] VITALS (88 sets, daily range): BP systolic 88–133; BP diastolic 54–88
--- NOTE | 2019-02-04 07:26 | NUR ---
PATIENT IS SLOWLY PROGRESSING IN HIS CARE PLAN. VITAL SIGNS STABLE WITH NURSE NOT PERCEIVING ANY PAIN OR NAUSEA ON BEHALF OF PATIENT. PATIENT REMAINED SEDATED FOR SAFETY WITHOUT INCIDENT. INTUBATED AND BREATHING FINE ON VENTILATOR EVIDENCED BY CONTINUOUS SATURATION MONITOR. FREQUENT SUCTION REQUIRED. VENT CARE PER PROTOCOL WITH FREQUENT ORAL CARE PROVIDED. TUBE FEED PER PROTOCOL WITH WATER FLUSHES PROVIDED. Q2 TURNS WITH BED BATH PROVIDED THIS MORNING. LEVOFED, AMIODARONE, LASIX AND PROPOFOL GTTS SUCCESSFULLY MANAGED TO GOOD EFFECT. CONTINUE PLAN OF CARE.
[2019-02-04 11:16] LABS: HCO3 35.7 mmol/L (22.0-26.0); PCO2 64.7 mmHg (35.0-45.0); PO2 108.3 mmHg (80.0-100.0); sO2 97.6 % (92.0-98.0)
--- NOTE | 2019-02-04 15:51 | NUR ---
Pt passed his cpap trial today and was extubated. He is alert and swearing at the ICU staff. Sister Shira updated. She notes that pt's mom and brother are coming in later today to visit with him. No DPOA document rec'd from [facility] medical records. Sister to fax a copy of his DPOA document tomorrow. She reports that the family feels he needs fdc care at tx. Placement process discussed. Will need to review her dpoa document, assess the pt's mental status in the coming days as well as his functional status now that he is off the vent. The pt's records from [facility] indicate mutliple inpt admissions there as well as some clinic followup. The pt has a complex medical history with non compliance with medications, substance abuse and followup care. Shira is aware of this and acknowledged these struggles. She notes that he did live with her in [facility] for a few months and did well as she managed his f/u care and medications. Support provided. Will ask for therapy evals and await the care team recommendations. The pt remain in ICU today.
[2019-02-05] VITALS (21 sets, daily range): BP systolic 79–110; BP diastolic 53–84
[2019-02-05 03:19] LABS: CREATININE 2.1 mg/dL (0.7-1.3); MAGNESIUM 1.9 mg/dL (1.8-2.4); POTASSIUM 3.6 mmol/L (3.5-5.1)
[2019-02-05 03:22] LABS: HEMOGLOBIN 11.5 gm/dL (14.0-18.0); MCH 25.8 pg (26.0-34.0); RBC 4.47 mil/uL (4.50-6.00)
[2019-02-05 03:24] LABS: HEMATOCRIT 38.4 % (42.0-52.0); MCV 85.9 fL (80.0-100.0); PLATELET COUNT 124 thou/uL (150-400); RDW 21.8 % (10.5-14.5); WBC 7.7 thou/uL (4.0-11.0)
[2019-02-05 03:56] LABS: ABSOLUTE NEUTROPHILS 6.2 thou/uL (1.4-8.2); ANISOCYTOSIS 2+; LARGE PLATELETS FEW; MYELOCYTES 1 %
--- NOTE | 2019-02-05 05:05 | NUR ---
Patient progressing well towards outcome goals. Oxygenation maintained with 4L/NC sats mid 90's. Denies pain Vital signs stable sbp upper 90's low 100's. Rhythm afib rate controlled 90's. Diuresing from Lasix. Amiodarone drip maint rate. With periods of agitation, pulling at lines, refused Heparin SQ. Requires cont use of soft wrists restraints for line safety.
--- NOTE | 2019-02-05 16:53 | NUR ---
5N eval ordered today. Therapy to work with the pt and cm will reassess dc planning needs early next week.
--- NOTE | 2019-02-05 17:23 | NUR ---
assessments as documented. pt alert to self, situation. forgetful and confused at times. d/c'd. restraints at shift change. pt less agitated this morning. afib on the monitor- rates controlled. on 4l nc. speech eval. nectar thick, pureed diet. worked with pt, stood up at side of bed. amio gtt infusing at 0.5mg. levo gtt at 5. will continue to monitor.
--- NOTE | 2019-02-05 21:20 | NUR ---
PT REPORT GIVEN TO JENNA ANGEL. ALLOWED FOR QUESTIONS. PT MOVE TO ROOM 364 IN STABLE CONDITION.
[2019-02-06] VITALS: BP 119/80
[2019-02-06 05:20] VITALS: BP 120/75
[2019-02-06 07:55] VITALS: BP 100/66
--- NOTE | 2019-02-06 08:45 | NUR ---
PT RECIEVCED FROM ICU, ARRIVED VIA BED. PLACED IN ROOM 364 AT APPROX 2230. PT INITIALLY REFUSING TO GO INTO THE ROOM BUT DID AGREE ONCE HE WAS REASSURED IT WAS A PRIVATE ROOM. NO SOA NOTED OVERNIGHT. ON O2 AT 5L PER NC. LUNGS DIMINISHED THROUGHOUT. CONTINUE TO MONITOR.
[2019-02-06 12:04] VITALS: BP 91/52
[2019-02-06 16:45] VITALS: BP 95/68
--- NOTE | 2019-02-06 19:04 | NUR ---
ASSUMED CARE OF PT AT SHIFT CHANGE. ASSESSMENTS CHARTED. MEDS GIVEN PER JAN. PT ALERT AND ORIENTED, DROWSY. PT STATED HE DID NOT SLEEP WELL LAST NIGHT. VSS, HYPOTENSIVE, ASYMPTOMATIC. O2 WNL ON 4L, NO S/SX OF CARDIAC OR RESP DISTRESS NOTED. PT ON AMIO AND LASIX DRIP, AMIO DRIP DC'D BY CARDILOGY THIS SHIFT. LASIX DRIP CONTINUES. URINE OUTPUT ADEQUATE PER GODINEZ CATH. AFIB ON MONITOR, CONTINUES TO BE CONTROLLED. PHYSICAL THERAPY ATTEMPTED TO WORK WITH PT THIS SHIFT, PT DID NOT WANT TO GET UP. EDUCATED ON IMPORTANCE OF MOBILITY. PT ATE MEALS ADEQUATELY. DENIES CONCERNS AT THIS TIME. WILL CONTINUE TO MONITOR AND FOLLOW POC.
[2019-02-06 23:41] VITALS: BP 108/85
[2019-02-07 05:22] VITALS: BP 103/59
[2019-02-07 08:00] VITALS: BP 105/76
--- NOTE | 2019-02-07 08:00 | NUR ---
PT TRANSFERRING TO BEDSIDE COMMODE WITH ASSIST X2 AND IS TOLERATING FAIR. DENIES PAIN. RESTING COMFORTABLY. NO NEEDS VOICED. CALL LIGHT WITHIN REACH. WILL CONTINUE TO PROVIDE FREQUENT OBSERVATION.
[2019-02-07 11:59] VITALS: BP 98/59
[2019-02-07 16:47] VITALS: BP 96/99
--- NOTE | 2019-02-07 19:46 | NUR ---
PATIENT CONT ON LASIX GTT AND GOOD OUTPUT NOTED. HE STATES HE FEELS MUCH BETTER TODAY. BREATHING IS SIGNIFICANTLY IMPROVED. HE SLEPT THROUGH THE DAY AWAKENING TO USE BATHROOM. HAD TWO BMS TODAY. WILL CONT WITH PLAN OF CARE.
[2019-02-07 19:53] VITALS: BP 91/65
[2019-02-08 04:08] VITALS: BP 102/72
[2019-02-08 08:23] VITALS: BP 111/69
[2019-02-08 08:26] LABS: HEMATOCRIT 40.8 % (42.0-52.0); HEMOGLOBIN 12.4 gm/dL (14.0-18.0); MCH 25.9 pg (26.0-34.0); MCHC 30.4 g/dL (28.0-37.0); MCV 85.4 fL (80.0-100.0); RBC 4.78 mil/uL (4.50-6.00); RDW 21.8 % (10.5-14.5); WBC 10.6 thou/uL (4.0-11.0)
[2019-02-08 08:40] LABS: ALBUMIN 2.6 g/dL (3.4-5.0); CALCIUM 8.7 mg/dL (8.5-10.1); CREATININE 1.5 mg/dL (0.7-1.3); MAGNESIUM 1.6 mg/dL (1.8-2.4); POTASSIUM 3.6 mmol/L (3.5-5.1); TOTAL PROTEIN 6.6 g/dL (6.4-8.2)
[2019-02-08 11:54] VITALS: BP 99/63
[2019-02-08 15:39] VITALS: BP 99/66
--- NOTE | 2019-02-08 15:40 | NUR ---
SW reviewed chart and spoke with nursing and attending physician. Pt was transferred to from ICU and is progressing towards goals for discharge. Pt has been refusing to work with therapy. SW met with pt at bedside. SW discussed plans for discharge. Pt states that he will not agree to go anywher for rehab. SW explained that insurance will not cover HH therapy services. Pt verbalized understanding. Pt states he does not have home O2 in place. SW will confirm prior to discharge. SW is following to assist as needed with discharge planning.
--- NOTE | 2019-02-08 18:00 | NUR ---
ASSUMED PATIENT CARE AT 0700. ALERT. IRRITABLE SOME TIMES. REFUSED WORK WITH PT/OT. DENIES PIAN. REFUSED TURN. POOR APPETITE. BP ON THE LOW SIDE. SLOWLY TOWARDS POC GOALS.
[2019-02-08 20:56] VITALS: BP 102/65
[2019-02-09 04:28] VITALS: BP 84/60
--- NOTE | 2019-02-09 04:43 | NUR ---
Patient making slow progress towards outcome goals. Vital signs and rhythm stable. Anxious to go home, refused nectar thick liquids, patient observed drinking thin liquids without difficulty.
[2019-02-09 08:23] VITALS: BP 99/64
[2019-02-09 12:08] VITALS: BP 100/67
--- NOTE | 2019-02-09 15:15 | NUR ---
SW reviewed chart and spoke with nursing and attending physician. Pt is slowly progressing towards goals for discharge. SW requested rest/exercise oximetry to be ordered to evaluate pt for home O2 needs. SW is following to assist as needed with discharge planning.
--- NOTE | 2019-02-09 16:38 | NUR ---
PATIENT IS UNABLE TO AMBULATE. DR GONSALEZIED
[2019-02-09 18:08] VITALS: BP 80/39
--- NOTE | 2019-02-09 18:18 | NUR ---
ASSUMED PATIENT CARE AT 0700. ALERT. TOLERATED THIN LIUID. OUT OF BED TO CHAIR BY SELF. DENIES PAIN. A FIB ON MONITOR. VSS, AFEBRILE. PROGRESSING TOWARDS POC GOALS.
[2019-02-09 19:36] VITALS: BP 89/57
[2019-02-10 04:28] VITALS: BP 90/59
[2019-02-10 04:47] LABS: HEMATOCRIT 37.3 % (42.0-52.0); HEMOGLOBIN 11.4 gm/dL (14.0-18.0); MCH 25.9 pg (26.0-34.0); MCHC 30.6 g/dL (28.0-37.0); MCV 84.7 fL (80.0-100.0); RBC 4.4 mil/uL (4.50-6.00)
[2019-02-10 04:54] LABS: CALCIUM 8.2 mg/dL (8.5-10.1); CREATININE 1.7 mg/dL (0.7-1.3); MAGNESIUM 1.5 mg/dL (1.8-2.4); POTASSIUM 3.8 mmol/L (3.5-5.1)
--- NOTE | 2019-02-10 06:17 | NUR ---
PT STILL AFIB ON MONITOR. OVER THE SHIFT THE PT CHOSE TO STAY IN THE CHAIR MOST OF THE NIGHT, ONLY MOVING TO THE BED AT 0400. PT WAS SOMEWHAT PLEASANT WITH NURSE OVER THE SHIFT. I WILL PASS ON THAT THE HOSPITALIST NEEDS TO CALL THE PT'S MOTHER ARJUN. CONSULT TO ID WILL BE CALLED IN. STILL ATTEMPTING TO CAPTURE SPUTUM SAMPLE. MOVING TOWARDS DC GOALS DAILY. HOURLY ROUNDING.
[2019-02-10 08:13] VITALS: BP 113/70
[2019-02-10 11:23] VITALS: BP 97/66
--- NOTE | 2019-02-10 14:07 | NUR ---
SW reviewed chart and spoke with nursing and attending physician. Pt is slowly progressing towards goals for discharge. Pt was unable to walk with RT yesterday to determine pt's home O2 needs. Order was cancelled. SW discussed with attending physician. Order written again. Psych consulted to evaluate pt. Awaiting input from psych. SW is following to assist as needed with discharge planning.
[2019-02-10 16:00] VITALS: BP 91/61
--- NOTE | 2019-02-10 16:03 | NUR ---
PT REFUSED REST AND EXERCISE SAT. STATES HE HAS A CONCENTRATOR AND PORTIBLE UNITS AT HOME. NURSE PRESENT DURING ATTEMPT.
--- NOTE | 2019-02-10 18:27 | NUR ---
Assumed care of patient at 0700. BP soft at times, otherwise VSS. Patient is drowsy, sleeping most of shift, but easily arousable. Oriented to person and place. Refuses to answer other orientation questions. Moods labile. Sometimes frustrated / rude towards staff, othertimes, cooperative with care and apologetic. Refused therapy. Refused rest and exercise study, stating he is not going to walk and he already has oxygen to use at home. Patient kept pulling at central line and taking dressing off. Updated Dr. Stone and order to discontinue central line. Pressure held x 5 mins and new dressing applied. New PIV obtained. Voiding per urinal. Up with 1-2 assist and gait belt to [facility]. Fall precautions in place. Psych consult today. Attempting to progress towards POC. Will continue to monitor.
[2019-02-10 21:06] VITALS: BP 93/57
[2019-02-11 05:06] VITALS: BP 89/64
[2019-02-11 05:12] LABS: HEMOGLOBIN 10.9 gm/dL (14.0-18.0); WBC 9.3 thou/uL (4.0-11.0)
[2019-02-11 05:14] LABS: HEMATOCRIT 35.1 % (42.0-52.0); MCH 26.1 pg (26.0-34.0); MCHC 31.1 g/dL (28.0-37.0); MCV 83.9 fL (80.0-100.0); RBC 4.18 mil/uL (4.50-6.00); RDW 22.2 % (10.5-14.5)
[2019-02-11 05:30] LABS: CALCIUM 8.5 mg/dL (8.5-10.1); CREATININE 1.4 mg/dL (0.7-1.3); MAGNESIUM 2.1 mg/dL (1.8-2.4); POTASSIUM 4.6 mmol/L (3.5-5.1)
--- NOTE | 2019-02-11 06:05 | NUR ---
PT MOTHER STAYED UNTIL 2100. PT STILL FLAT EFFECT. KEEP INSTRUCTIONS SIMPLE. PT NON COMPLIANT WITH DIET HE CHOSES TO EAT GRAPES AND CUTIES. PT BP STILL SOFT. HOURLY ROUNDING.
[2019-02-11 07:56] VITALS: BP 90/55
--- NOTE | 2019-02-11 11:44 | NUR ---
PATIENT REFUSED TO BE TAKEN DOWN TO XRAY. STATES "I AM NOT LEAVING THIS ROOM". "NOTHING YOU CAN DO WILL CHANGE MY MIND". DR KHALIL PAGED AND NOTIFIED. PATIENT HAS SLEPT IN ROOM ALL MORNING COVERING HIS HEAD WITH BLANKET.
[2019-02-11 13:09] LABS: AMIODARONE 1.3 ug/mL (1.0-2.5); DES-AMIODARONE 0.5 ug/mL (1.0-2.5)
[2019-02-11] MEDS ORDERED: PREDNISONE 20 M20 M1 PO (13:27)
[2019-02-11] MEDS ORDERED: KEPPRA750 MG PO (13:27)
[2019-02-11] MEDS ORDERED: ZYPREXA 5 MG TAB5 M1 PO (13:27)
[2019-02-11] MEDS ORDERED: CARVEDILOL12.5 MG PO (13:27)
[2019-02-11] MEDS ORDERED: PACERONE 200 M200 M1 PO (13:27)
--- NOTE | 2019-02-11 15:08 | NUR ---
DARWIN reviewed chart and spoke with nursing and attending physician. Pt is medically stable for discharge today. Pt will need IV abx for 2 weeks. Pt was agreeable with placement in a nursing facility. DARWIN met with pt at bedside to discuss discharge plan. Pt states that he has changed his mind and will not go to a nursing facility. SW discussed need for continued IV abx. Pt states he would be agreeable with coming to [facility] daily for outpatient infusion. SW explained that he would need to come to the hospital every day until duration of IV abx has been completed. Pt states he has his own car and would be able to do that. SW offered to contact his mother and/or sister to discuss discharge plan. Pt states that SW does not need to call them, as he makes his own decisions. Pt states he does have home O2 in place: concentrator and portable tanks. DARWIN faxed clinical info to outpatient infusion and left message for jewel oliving machine operator. Awaiting call back from outpatient infusion at this time. DARWIN updated pt's nurse and attending physician. DARWIN is following to assist as needed with discharge planning.
[2019-02-11 16:02] VITALS: BP 92/65
--- NOTE | 2019-02-11 19:07 | HC ---
[facility] [place] [address] CONSULTATION Name: KATHY STONER ALAN Room #: 364-P [facility] IN M.R.#: [id number] Admission: 01/26/19 ������������������ Attend Phys: Indra Nicholas MD Discharge: ������������������ Date of : 64 Report #: [id number] THIS REPORT FOR: //name// CC: James Nicholas [facility] physician/PCP Kuldeep Cuellar DATE OF SERVICE: 02/10/2019 INFECTIOUS DISEASES CONSULTATION REASON FOR CONSULTATION: I was asked to evaluate concerning staphylococcal bacteremia. HISTORY OF PRESENT ILLNESS: The patient is a 58-year-old who was admitted on 01/26/2019 with multisystem failure, noting acute renal failure with a creatinine of 7.1, metabolic acidosis, atrial fibrillation with rapid ventricular response and respiratory failure, required intubation and mechanical ventilation, was in the Intensive Care Unit. During that acute stage, he had a right IJ catheter placed on 01/28/2019. Subsequent infectious workup was performed on 01/31/2019. This revealed Staphylococcus aureus, methicillin susceptible in the blood as well as in his sputum. On admission, he had had Enterococcus faecalis in his urinary culture and this again showed up on the 01/31/2019. He has been treated with vancomycin and cefepime. He is now day #7 of his treatment. He is out of the Intensive Care Unit. He is on oxygen 4 liters per nasal cannula. No fever, chills or sweats. He is a very poor historian. Overall, he is weak, but is getting out of bed. His renal function has improved now, creatinine 1.7. He has been seen by the nephrology service. He did have a transthoracic echocardiogram on admission, which showed no evidence of vegetation, although he had moderate to severe tricuspid regurgitation and pulmonary hypertension. ALLERGIES: PENICILLIN. MEDICATIONS: As noted on his JAN. PAST MEDICAL HISTORY: Atrial fibrillation, COPD, heart failure, Hodgkin's lymphoma in 2012, diabetes, seizure disorder, polysubstance abuse, cirrhosis, ACTIVITIES LEADER bleed, West Nile virus infection. FAMILY HISTORY: Noncontributory. SOCIAL HISTORY: Smoker of cigarettes. No significant alcohol intake. REVIEW OF SYSTEMS: A 10-point review was negative other than what is described [facility] [address] [place] [address] CONSULTATION Name: KATHY STONER Room #: 364-P [facility] IN [facility].#: [id number] Admission: 01/26/19 ������������������ Attend Phys: Indra Nicholas MD Discharge: ������������������ Date of : 64 Report #: [id number]. PHYSICAL EXAMINATION: VITAL SIGNS: Afebrile and hemodynamically stable. GENERAL: He was alert and cooperative. Generalized weakness, very thin. SKIN: Without rash or decubitus. No palpable adenopathy. HEENT: Eyes, without scleral icterus. He did have conjunctivitis in the left eye. Mouth without mucositis. NECK: Supple, with no thyromegaly or mass. LUNGS: Few crackles in the bases bilaterally, no consolidation. HEART: Regular, without a murmur, gallop or rub. ABDOMEN: Mildly distended. He had what appeared to be ascites. His liver was enlarged and palpable. No other masses identified. GENITORECTAL: Not performed. EXTREMITIES: With 1+ edema in his lower extremities. No cyanosis or clubbing noted. Cranial nerves intact with strength in his upper and lower extremities equal bilaterally. Sensation was intact bilaterally. LABORATORY STUDIES: Sodium 137, potassium 3.8, bicarbonate 36, BUN 57, creatinine 1.7. Hemoglobin 11.4, white count 11, platelet count 120,000. Blood cultures from 01/26/2019 were negative. Blood cultures from 01/31/2019, Staph aureus, methicillin susceptible. Blood cultures from 02/04/2019 negative. Sputum culture, methicillin-susceptible Staphylococcus aureus from 01/31/2019, and urine culture both from 01/27/2019 and 01/31/2019 with Enterococcus faecalis, sensitive to all drugs tested except for tetracycline. Chest x-ray shows bilateral patchy infiltrates. IMPRESSION: A 58-year-old with multisystem disease, currently has Staphylococcus aureus bacteremia, would expect pneumonia versus central venous catheter infection as the most likely source. The patient had cleared as of 02/04/2019. He still has his right IJ catheter in place. His respiratory failure has resolved, although he has residual basilar changes. His acute renal failure is improving. Enterococcal urinary tract infection has been treated. Underlying cirrhosis with suspected ascites. Past history of lymphoma. RECOMMENDATIONS: We will continue his cefazolin for 14 days. Repeat his blood culture today and remove the central venous catheter. Follow his serum creatinine. ��������������������������������������������� <ELECTRONICALLY SIGNED> ���������������������������������������� By: Lenny Stone MD ��������������������������������������������� 02/11/19 [id number] Lenny Stone MD /nt
[2019-02-11 19:48] VITALS: BP 93/60
--- NOTE | 2019-02-12 03:06 | NUR ---
PATIENT IS ALERT AND ORIENTED. PATIENT IS PENDING DISCHARGE. PATIENT IS RESTING COMFORTABLY. PATIENT DENIES PAIN. PATIENT IS ON 4L NC. PATIENT IS MAX 2 ASSIST PIVIOT TRANSFER TO [facility]. PATIENT WANTS TO GO HOME. PATIENT IS UPSET ABOUT DIET. CM IS WORKING SENDING PATIENT HOME. [facility].
[2019-02-12 04:26] VITALS: BP 101/70
[2019-02-12 08:08] VITALS: BP 89/58
--- NOTE | 2019-02-12 13:43 | NUR ---
DARWIN reviewed chart and spoke with nursing, attending physician, and ID physician. Pt needs to be on IV abx: cefazolin TID for 2 weeks. Per physician, pt is unable to manage IV abx as an outpatient. DARWIN met with pt at bedside to discuss possible LTAC placement for IV abx, rehab and respiratory therapy. Pt was very resistant to idea of going to a facility. DARWIN explained that physicians want pt to continue current IV abx and have close medical mgmt. DARWIN provided options for LTAC. Pt chose [facility] due to location. DARWIN contacted [facility] liaison to request eval. Will need authorization from [place]-Medicaid. Pt states that he did not think he is ready for discharge today. DARWIN explained that if [facility] can accept and get insurance authorization, he may be able to discharge. Chart copy requested. Awaiting input from [facility] at this time. DARWIN is following to assist as needed with discharge planning.
[2019-02-12 17:20] VITALS: BP 104/74
[2019-02-12 19:40] VITALS: BP 97/69
--- NOTE | 2019-02-13 01:56 | NUR ---
PATIENT IS ALERT AND ORIENTED. PATIENT WANTS TO EAT NORMAL FOOD. PATIENT ALSO WANTS TO GO HOME. PATIENT IS TIMES 2 ASSIST. PATIENT IS HERE TO RECEIVE IV ANTIBIOTICS. PATIENT DENIES PAIN. PATIENT IS ON 4LNC WHICH IS NEW BASELINE. PATIENT IS RESTING COMFORTABLY IN BED. WCM.
[2019-02-13 03:47] LABS: CALCIUM 8.4 mg/dL (8.5-10.1); CREATININE 1.3 mg/dL (0.7-1.3); MAGNESIUM 1.9 mg/dL (1.8-2.4); POTASSIUM 4.2 mmol/L (3.5-5.1)
[2019-02-13 03:52] LABS: HEMATOCRIT 34.9 % (42.0-52.0); HEMOGLOBIN 10.7 gm/dL (14.0-18.0); MCHC 30.6 g/dL (28.0-37.0); MCV 84.8 fL (80.0-100.0); RBC 4.12 mil/uL (4.50-6.00); WBC 7.1 thou/uL (4.0-11.0)
[2019-02-13 05:55] VITALS: BP 94/63
--- NOTE | 2019-02-13 18:12 | NUR ---
PATIENT KEPT REPEATING TO NURSE THAT HE WANTS TO GO HOME. STATES HIS FAMILY IS USING HIS MONEY AND WANTS TO GO AND TAKE CARE OF IT. HE REQUIRES TOTAL ASSIST WITH TRANSFERS AND NOT ABLE TO AMBULATE ON HIS OWN. EDUCATED ON NEED TO CONT IV ABT TO COMPLETION. PT STATES " I DON'T CARE ABOUT WHAT YOU ARE TALKING ABOUT. I WANT TO GO HOME AND TAKE CARE MY BUSINESS". HE HAS BEEN RUDE AT TIMES TO OTHER STAFF ON THE TEAM. REFUSING FEMALE STAFF FROM TAKING HIS VITALS. HE WAS EDUCATED ON STRUCTURE OF TEAM AND NEED TO COOPERATE. STILL AWAITING PLACEMENT. WILL CONT WITH PLAN OF CARE.
[2019-02-13 20:15] VITALS: BP 99/69
--- NOTE | 2019-02-14 02:29 | NUR ---
PATIENT IS ALERT AND ORIENTED. PATIENT IS MAX ASSIST PIVIOT TRANSFER. PATIENT IS ON 4L NC. PATIENTS LBM THE 16TH. PATIENT IS A FIB ON TELE. PATIENT IS ACHS ACCUCHECKS. PATIENT IV DRESSING WAS CHANGED. PATIENT IS PENDING DISCHARGE TO EITHER FACILTY OR HOME. PATIENT REQUIRES IV ANTIBIOTICS.
[2019-02-14 04:45] VITALS: BP 94/61
--- NOTE | 2019-02-14 17:07 | NUR ---
HE HAS BEEN QUIE CALM TODAY BUT WILL NOT LET ACTIMIZE ARCHITECT PARTICIPATE IN HIS CARE. AWAITING PLACEMENT TO LTAC. SPOKE WITH PATIENT TODAY ABOUT DISCHARGE GOALS. HE AGREED THAT
--- NOTE | 2019-02-14 21:22 | NUR ---
refused vitals and accucheck.
--- NOTE | 2019-02-15 01:05 | NUR ---
PATIENT IS REFUSING ALL CARE, REFUSED ASSESSMENTS AND MEDS
--- NOTE | 2019-02-15 01:21 | NUR ---
PATIENT IS ALERT AND ORIENTED. PATIENT IS REFUSING ALL CARE AND MEDS. PATIENT HAS BEEN RUDE TO NURSING STAFF. PATIENT IS IN FALL PRECAUTIONS. PATIENT IS ON 4L NC. PENDING DISCHARGE TO LTAC. AND[facility].
[2019-02-15 06:00] VITALS: BP 105/77
[2019-02-15 08:46] VITALS: BP 98/66
--- NOTE | 2019-02-15 11:32 | NUR ---
DP SENT INITIAL REFERRAL TO [facility]. cASE MANGAGEMENT TO FOLLOW UP.
[2019-02-15 11:46] VITALS: BP 95/63
--- NOTE | 2019-02-15 12:19 | NUR ---
DARWIN reviewed chart and spoke with nursing and attending physician. Pt is progressing towards goals for discharge. DARWIN discussed case with [facility] liaison, who states they are not able to accept pt. DARWIN met with pt at bedside to discuss alternate options for placement. Pt is agreeable with referral to [facility] and also requests referral to [facility]. development planner faxed referral. Awaiting input from [facility] and [facility] at this time. DARWIN notified liaisons for both [facility] and [facility] of new referral. DARWIN is following to assist as needed with discharge planning.
[2019-02-15 15:13] VITALS: BP 90/58
[2019-02-15 19:06] VITALS: BP 94/63
[2019-02-16 06:08] LABS: HEMATOCRIT 31.6 % (42.0-52.0); HEMOGLOBIN 9.8 gm/dL (14.0-18.0); MCH 26.2 pg (26.0-34.0); MCV 84.6 fL (80.0-100.0); RBC 3.73 mil/uL (4.50-6.00); RDW 22.5 % (10.5-14.5); WBC 4.8 thou/uL (4.0-11.0)
[2019-02-16 06:21] VITALS: BP 97/69
[2019-02-16 06:47] LABS: ALBUMIN 2.4 g/dL (3.4-5.0); CALCIUM 8.2 mg/dL (8.5-10.1); CREATININE 1.8 mg/dL (0.7-1.3); MAGNESIUM 1.7 mg/dL (1.8-2.4); POTASSIUM 4.5 mmol/L (3.5-5.1); TOTAL BILIRUBIN 0.5 mg/dL (<0.1-1.0); TOTAL PROTEIN 6.1 g/dL (6.4-8.2)
--- NOTE | 2019-02-16 06:51 | NUR ---
UP TO BSC X 2 MAX ASSIST. LARGE BM. ALERT, FORGETFUL. ABLE TO HAVE COHERENT CALM FULLY ORIENTED CONVERSATION BUT THIS WILL CHANGE NEXT TIME YOU ENTER ROOM. COMPLIANT WITH RECEIVING IV ANTIBIOTICS AND SAFETY INSTRUCTIONS.
[2019-02-16 08:08] VITALS: BP 100/70
[2019-02-16 08:44] VITALS: BP 100/70
--- NOTE | 2019-02-16 12:24 | NUR ---
PT HAS A PATTERN OF REFUSING O.T. SERVICES. TODAY PT REFUSED BY STATING SEVERAL TIMES, "GET OUT OF MY FACE!" PT IS, THEREFORE, DISCHARGED FROM O.T. DUE TO NON-COMPLIANCE.
--- NOTE | 2019-02-16 16:02 | NUR ---
DARWIN reviewed chart and spoke with nursing and attending physician. Pt is medically stable for discharge. SW contacted [facility] liaison, who states they are not able to accept pt due to his hx of noncompliance and polysubstance abuse. SW updated attending physician. When attending physician rounded and saw pt, pt was dressed and ready to leave the hospital. Pt was refusing to stay and was adamant about leaving the hospital. SW spoke with attending physician via phone. SW discussed that referrals can be sent to alternate LTC facilities. Pt refusing placement and adamant about leaving. Pt signed AMA paperwork and left the hospital. No additional SW needs identified at this time, but is available to assist should needs arise.
== END 2019-02-16 14:29 | disposition left against medical advice (07) | DRG 870 ==
LOC: ER 19:00 → ICU 21:49 → EROBS 21:49 → ICU 01-27 00:26 → 3W 02-05 23:10
PROVIDERS: Emergency Medicine; Hospitalist; Internal Medicine; Internal Medicine Pulmonary Disease; Nurse Practitioner; Nurse Practitioner Acute Care; Pediatrics; ADMIT Hospitalist
PROC: 5A1955Z Respiratory Ventilation, Greater than 96 Consecutive Hours (ICD-10-PCS; principal; 2019-01-27)
PROC: 0BH17EZ Insertion of Endotracheal Airway into Trachea, Via Natural or Artificial Opening (ICD-10-PCS; 2019-01-27)
PROC: 02HV33Z Insertion of Infusion Device into Superior Vena Cava, Percutaneous Approach (ICD-10-PCS; 2019-01-27)
DX: A41.01 Sepsis due to Methicillin susceptible Staphylococcus aureus (principal); I50.23 Acute on chronic systolic (congestive) heart failure; J96.01 Acute respiratory failure with hypoxia; J96.02 Acute respiratory failure with hypercapnia; G92 Toxic encephalopathy; J18.9 Pneumonia, unspecified organism; N17.9 Acute kidney failure, unspecified; E87.2 Acidosis; J44.0 Chronic obstructive pulmonary disease with (acute) lower respiratory infection; I47.1 Supraventricular tachycardia; I13.0 Hypertensive heart and chronic kidney disease with heart failure and stage 1 through stage 4 chronic kidney disease, or unspecified chronic kidney disease; E46 Unspecified protein-calorie malnutrition; G40.909 Epilepsy, unspecified, not intractable, without status epilepticus; I48.91 Unspecified atrial fibrillation; E66.9 Obesity, unspecified; F17.210 Nicotine dependence, cigarettes, uncomplicated; F14.10 Cocaine abuse, uncomplicated; F19.10 Other psychoactive substance abuse, uncomplicated; E87.5 Hyperkalemia; E11.649 Type 2 diabetes mellitus with hypoglycemia without coma; I27.20 Pulmonary hypertension, unspecified; E11.22 Type 2 diabetes mellitus with diabetic chronic kidney disease; N18.9 Chronic kidney disease, unspecified; K72.90 Hepatic failure, unspecified without coma; B95.2 Enterococcus as the cause of diseases classified elsewhere; Z53.21 Procedure and treatment not carried out due to patient leaving prior to being seen by health care provider; R13.10 Dysphagia, unspecified; N30.90 Cystitis, unspecified without hematuria; F43.20 Adjustment disorder, unspecified; K70.9 Alcoholic liver disease, unspecified; E78.5 Hyperlipidemia, unspecified; I95.9 Hypotension, unspecified; G47.33 Obstructive sleep apnea (adult) (pediatric); Z86.73 Personal history of transient ischemic attack (TIA), and cerebral infarction without residual deficits; Z88.0 Allergy status to penicillin; Z68.22 Body mass index [BMI] 22.0-22.9, adult; Z85.72 Personal history of non-Hodgkin lymphomas; Z79.4 Long term (current) use of insulin; Z91.14 Patient's other noncompliance with medication regimen
CPT/HCPCS: 10078; 10080; 10879